=== PATIENT | male | born 1995 | race Asian ===

== ENCOUNTER 2020-09-30 08:51 | Inpatient (IN) | payer MEDICAID, SELFPAY ==
[2020-09-30] VITALS (8 sets, daily range): BP systolic 89–122
[~2020-09-30] VITALS: Ht 165.1 cm; Wt 122.5 kg
--- NOTE | 2020-09-30 09:10 | NUR ---
Pt bib EMS from intermediate with c/o rectal bleeding and pain for unknown amount of time. H/O developmental delays, states the people at the intermediate gave him "a poop pill" and since then he had diarrhea and pain, and noticed blood in stool. V/S stable, excoriation and blood noted on buttocks and in diaper. No acute distress noted.
--- NOTE | 2020-09-30 09:10 | NUR ---
Placed in room 5 . Placed on panel monitor, blood pressure machine and pulse oximeter. To gown for exam. Side rails up.
--- NOTE | 2020-09-30 09:13 | NUR ---
ER Dr. Glasgow at bedside examining patient.
[2020-09-30] MEDS ORDERED: HYDROcodone/ACETAMIN 5-325 MG TAB (NORCO/ VICODIN) PO ONE (09:15)
[2020-09-30 10:19] LABS: BASOPHILS # (AUTO) 0.1 K/uL (0.0-0.2); BASOPHILS % (AUTO) 0.5 % (0.0-2.0); EOSINOPHILS # (AUTO) 0.1 K/uL (0.0-0.4); EOSINOPHILS % (AUTO) 0.7 % (0.0-4.0); HEMATOCRIT 33.9 % (36-54); HEMOGLOBIN 10.7 g/dL (14.0-18.0); LYMPHOCYTES # (AUTO) 0.7 K/uL (1.0-5.5); LYMPHOCYTES % (AUTO) 6.4 % (20.5-51.5); MEAN CORPUSCULAR HEMOGLOBIN 28 pg (27-31); MEAN CORPUSCULAR HGB CONC 32 % (32-36); MEAN CORPUSCULAR VOLUME 90 fL (79.0-98.0); MONOCYTES # (AUTO) 0.9 K/uL (0.0-1.0); MONOCYTES % (AUTO) 7.3 % (1.7-9.3); NEUTROPHILS % (AUTO) 85.1 % (40.0-70.0); PLATELET COUNT (AUTO) 297 K/uL (130-430); RED BLOOD CELL COUNT(AUTO) 3.77 MIL/uL (4.2-6.2); RED CELL DISTRIBUTION WIDTH 15.2 % (9.0-15.0); WHITE BLOOD COUNT (AUTO) 11.7 K/uL (4.8-10.8)
[2020-09-30 10:41] LABS: CALCIUM 9.1 mg/dL (8.4-11.0)
[2020-09-30 10:44] LABS: POTASSIUM 7.9 mmol/L (3.5-5.1)
[2020-09-30 10:50] LABS: ALBUMIN 3.2 g/dL (3.4-4.8); TOTAL BILIRUBIN 0.5 mg/dL (0.0-1.0)
--- NOTE | 2020-09-30 10:50 | NUR ---
PER DR. MARSHALL, PT IS NOT STABLE FOR TRANSFER AND TO CALL FOR ADMISSION. DR. MICHELLE [phone]
[2020-09-30] MEDS ORDERED: INSULIN REGULAR, HUMAN 10 UNITS/0.1 ML INJ IVP ONE (11:00)
[2020-09-30] MEDS ORDERED: NACL 0.9% 2,000 ML IV ONE (11:00)
[2020-09-30] MEDS ORDERED: SODIUM BICARBONATE 0.5 MEQ/ML VIAL INJ ONE (11:00)
--- NOTE | 2020-09-30 11:00 | NUR ---
Patient will be admitted to care of Dr. Valerio. Admitted to telemetry unit. Waiting for room assignment. Belongings list completed. Complete and up to date summary report printed. SBAR report to be given at bedside with opportunity for questions.
[2020-09-30] MEDS ORDERED: LIP40 PO (11:09)
[2020-09-30] MEDS ORDERED: BUME2TAB7 PO (11:09)
[2020-09-30] MEDS ORDERED: ASPI-1077 PO (11:09)
[2020-09-30] MEDS ORDERED: METF1000 PO (11:09)
[2020-09-30] MEDS ORDERED: INSU100I26 SQ (11:09)
[2020-09-30] MEDS ORDERED: INSU1CAR SQ (11:09)
[2020-09-30] MEDS ORDERED: NEU300 PO (11:09)
[2020-09-30] MEDS ORDERED: METO-540 PO (11:09)
--- NOTE | 2020-09-30 11:09 | NUR ---
Medication reconciliation completed with information provided by [facility].
--- NOTE | 2020-09-30 11:14 | NUR ---
med rec and pt belonging form done
[2020-09-30] MEDS ORDERED: SODIUM BICARBONATE 8.4% JECT 50 MEQ/50 ML SYRINGE IVP ONE (11:15)
--- NOTE | 2020-09-30 11:15 | NUR ---
pt verbally declined, he does not wish us to notify family of admission to hospital
[2020-09-30] MEDS: NACL 0.9% 1,000 ML IV SCH ×2 (11:22→23:26)
--- NOTE | 2020-09-30 11:31 | NUR ---
DR. RAPHAEL, ALLIED DOC, CALLED BACK TO SPEAK TO DR. MARSHALL REGARDING PT STATUS.
--- NOTE | 2020-09-30 11:42 | NUR ---
Patient will be admitted to care of Dr. Valerio. Admitted to tele unit. Will go to room 113B. Belongings list completed. Complete and up to date summary report printed. SBAR report to be given at bedside with opportunity for questions.
[2020-09-30] MEDS ORDERED: CALCIUM GLUCONATE 1 GM/10 ML VIAL IVP ONE (11:45)
--- NOTE | 2020-09-30 12:09 | NUR ---
CONSULTATION PAGED/CALLED Reason for Consultation: RECTAL BLEED Person Who was Notified: GIO Consulting Physician: ORI CA Kitchenwhere Maker Specialty: GI Ordering Physician: Jessica MICHELLE
--- NOTE | 2020-09-30 12:14 | NUR ---
CONSULTATION PAGED/CALLED Reason for Consultation: RENAL FAILURE Person Who was Notified: DR HARE Consulting Physician: ANANYA Plant Safety Leader Specialty: NEPHRO Ordering Physician: MIGUEL ANGEL
--- NOTE | 2020-09-30 16:00 | NUR ---
DR MICHELLE CALLED REGARDING LABS RESULTS AND SAID WILL COME TO SEE THE PATIENT.
[2020-09-30] MEDS ORDERED: DEXTROSE 50% JECT 50 ML DISP.SYRIN IVP PRN (17:00)
[2020-09-30] MEDS ORDERED: D5W 1,000 ML IV PRN (17:00)
[2020-09-30] MEDS ORDERED: ONDANSETRON HCL 4 MG/2 ML VIAL IVP PRN (17:00)
[2020-09-30] MEDS ORDERED: MORPHINE 4 MG INJ. 4 MG/ML VIAL IVP PRN (17:00)
[2020-09-30] MEDS ORDERED: NALOXONE HCL 0.4 MG/ML AMP (NARCAN) IVP PRN (17:00)
[2020-09-30] MEDS ORDERED: SODIUM POLYSTYRENE SULFONATE 15 GM/60 ML UDBTL RC ONE (17:00)
[2020-09-30] MEDS ORDERED: cefTRIAXone 1 GM in D5W 50 ML IV SCH (17:00)
[2020-09-30] MEDS ORDERED: LORazepam 2 MG/ML VIAL IVP PRN (17:00)
[2020-09-30] MEDS ORDERED: GLUCOSE (DEXTROSE) ORAL GEL -Adults PO PRN (17:00)
[2020-09-30] MEDS ORDERED: MORPHINE 2 MG/ML INJ. SYRINGE IVP PRN (17:00)
--- NOTE | 2020-09-30 17:05 | NUR ---
CONSULTATION PAGED/CALLED Reason for Consultation: LEUKOCYTOSIS Person Who was Notified: GORAN Consulting Physician: KAYLYN Fisher Specialty: Ordering Physician: MIGUEL ANGEL
--- NOTE | 2020-09-30 17:26 | NUR ---
DR MICHELLE CAME AND DR HARE CAME TO SEE AND EVALUATE THE PATIENT.
--- NOTE | 2020-09-30 17:39 | NUR ---
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
[2020-09-30] MEDS: INSULIN REGULAR, HUMAN 100 UNITS/ML, 10 ML VIAL SUBCUT SCH (17:44)
[2020-09-30] MEDS: INSULIN REGULAR, HUMAN 100 UNITS/ML, 10 ML VIAL (humuLIN R) SUBCUT PRN (17:50)
--- NOTE | 2020-09-30 17:57 | NUR ---
AWAITING FOR ROCEPHIN IV. AND CALL DR MIGUEL ANGEL CARR FOR THE KAYEXELATE. PO.
--- NOTE | 2020-09-30 18:30 | NUR ---
Patient brought by nicanor from CT. VSS. Will endorse orders to oncoming RN.
--- NOTE | 2020-09-30 18:50 | NUR ---
SBAR REPORT GIVEN TO SUSY IN ICU AFTER CT SCAN OF ABDOMEN AND ULTRASOUND OF THE ABDOMEN.
--- NOTE | 2020-09-30 19:10 | NUR ---
OPENING NOTE: RECEIVED REPORT FROM RN USING SBAR REPORTING. ALL CARE ASSUMED.
--- NOTE | 2020-09-30 20:24 | NUR ---
DR. Jessica MICHELLE MD PAGED AT THIS TIME FOR ORDERS. SPOKE WITH BRICE AT THE EXCHANGE. WILL AWAIT MD CALL BACK.
[2020-09-30] MEDS ORDERED: INSULIN REGULAR, HUMAN 100 UNITS/ML, 10 ML VIAL SUBCUT ONE ×2 (20:30→23:00)
[2020-09-30] MEDS ORDERED: SODIUM POLYSTYRENE SULFONATE 15 GM/60 ML UDBTL PO ONE (20:30)
[2020-09-30] MEDS ORDERED: NOREPINEPHRINE BITARTRATE 4 MG in NS 246 ML IV PRN (20:30)
[2020-09-30] MEDS ORDERED: NOREPINEPHRINE 4 MG/4 ML VIAL IV ONE (20:37)
[2020-09-30] MEDS: GABAPENTIN 300 MG CAPSULE PO SCH (21:00)
[2020-09-30] MEDS: METOPROLOL SUCCINATE 25 MG TAB.SR.24H (TOPROL XL) PO SCH (21:00)
--- NOTE | 2020-09-30 22:30 | NUR ---
DR MICHELLE: UPDATED DR MICHELLE ON PTS STATUS. NEW ORDERS ACKNOWLEDGED AND CARRIED OUT. WILL CONTINUE TO MONITOR.
[2020-09-30 22:31] LABS: ALBUMIN 2.9 g/dL (3.4-4.8); CALCIUM 8.6 mg/dL (8.4-11.0); CREATININE 5.15 mg/dL (0.55-1.30); TOTAL BILIRUBIN 0.2 mg/dL (0.0-1.0)
[2020-09-30 22:41] LABS: POTASSIUM 6.4 mmol/L (3.5-5.1)
--- NOTE | 2020-09-30 23:00 | NUR ---
GREENE CATHETER: GREENE CATHETER INSERTED PER DR ORDERS. PT RELUCTANT BUT TOLERATED WELL. CLEAR URINE NOTED, DRAINING BY GRAVITY TO GREENE BAG.
[2020-09-30] MEDS: INSULIN GLARGINE 100 UNITS/ML 10 ML VIAL SUBCUT SCH (23:23)
[2020-10-01] VITALS (23 sets, daily range): BP systolic 90–135
[2020-10-01] MEDS: INSULIN REGULAR, HUMAN 100 UNITS/ML, 10 ML VIAL (humuLIN R) SUBCUT PRN ×4 (03:20→17:36)
[2020-10-01 06:11] LABS: ALBUMIN 2.7 g/dL (3.4-4.8); CALCIUM 8.5 mg/dL (8.4-11.0); CREATININE 4.5 mg/dL (0.55-1.30); HEMATOCRIT 30.3 % (36-54); HEMOGLOBIN 10.3 g/dL (14.0-18.0); MEAN CORPUSCULAR HEMOGLOBIN 30 pg (27-31); MEAN CORPUSCULAR HGB CONC 34 % (32-36); PHOSPHORUS 6.9 mg/dL (2.7-4.5); PLATELET COUNT (AUTO) 302 K/uL (130-430); POTASSIUM 5.2 mmol/L (3.5-5.1); RED BLOOD CELL COUNT(AUTO) 3.47 MIL/uL (4.2-6.2); RED CELL DISTRIBUTION WIDTH 14.9 % (9.0-15.0); TOTAL BILIRUBIN 0.2 mg/dL (0.0-1.0); WHITE BLOOD COUNT (AUTO) 10.3 K/uL (4.8-10.8)
[2020-10-01] MEDS: INSULIN REGULAR, HUMAN 100 UNITS/ML, 10 ML VIAL SUBCUT SCH ×3 (06:32→17:36)
[2020-10-01 06:46] LABS: MEAN CORPUSCULAR VOLUME 88 fL (79.0-98.0)
[2020-10-01 06:48] LABS: BAND % (MANUAL) 2 % (0-6); BASOPHILS % (MANUAL) 0 % (0-2); EOSINOPHILS % (MANUAL) 3 % (0-7); LYMPHOCYTES % (MANUAL) 10 % (20-46); MONOCYTES % (MANUAL) 6 % (0-11)
--- NOTE | 2020-10-01 07:07 | NUR ---
Nutrition Update Cornell Scale 12 noted. Pt admitted for Diabetes, uncontrolled, Renal failure, Rectal bleed Diet: NPO BMI: 44.9 kg/m2 RD to follow per nutrition care standards.
--- NOTE | 2020-10-01 07:28 | NUR ---
CLOSING NOTE: REPORT GIVEN TO RN USING SBAR REPORTING.
--- NOTE | 2020-10-01 07:30 | NUR ---
[facility] FOLLOW UP FOLLOWED UP WITH [facility] REGARDING 1900 PT PICKUP TIME. PER [facility]ARE PICKUP WILL BE AT 2100. WILL CONTINUE TO MONITOR PT. Addendum: 10/01/20 at 2021 by Kenya Peters RN WRONG TIME
--- NOTE | 2020-10-01 07:30 | NUR ---
Opening Note Received bedside report from endorsing RN for continuation of care. Received patient awake and resting in bed, no signs or symptoms of acute distress noted. Bed locked in lowest position, bed alarm on, and call light within reach. Fall and safety precautions in place. All needs met.
[2020-10-01] MEDS ORDERED: SODIUM BICARBONATE 8.4% JECT 50 MEQ/50 ML SYRINGE IVP ONE (07:45)
--- NOTE | 2020-10-01 07:48 | NUR ---
Spoke with Dr. Hernandez regarding ABG values, new orders received.
[2020-10-01 08:15] LABS: FREE T4 (FREE THYROXINE) 1.4 ng/dL (0.6-1.6)
[2020-10-01 08:23] LABS: ACETONE, SERUM TRACE (NEGATIVE)
--- NOTE | 2020-10-01 08:41 | NUR ---
2D ECHO being done at bedside.
[2020-10-01] MEDS ORDERED: ATORVASTATIN 20 MG TABLET PO SCH (09:00)
[2020-10-01] MEDS: GABAPENTIN 300 MG CAPSULE PO SCH ×2 (09:00→20:08)
[2020-10-01] MEDS: METOPROLOL SUCCINATE 25 MG TAB.SR.24H (TOPROL XL) PO SCH ×2 (09:00→20:08)
--- NOTE | 2020-10-01 09:04 | NUR ---
Family Update Spoke with patient's father regarding patient status and plan of care. All questions answered and education provided.
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
[2020-10-01] MEDS: INSULIN GLARGINE 100 UNITS/ML 10 ML VIAL SUBCUT SCH ×2 (09:23→20:07)
[2020-10-01] MEDS: NACL 0.9% 1,000 ML IV SCH ×2 (09:24→20:52)
[2020-10-01 10:18] LABS: BILIRUBIN,URINE NEGATIVE (NEGATIVE); BLOOD, URINE 3+ (NEGATIVE); COLOR,URINE YELLOW (YELLOW); GLUCOSE,URINE 3+ (NEGATIVE); KETONES,URINE NEGATIVE (NEGATIVE); LEUKOCYTE ESTERASE ,URINE NEGATIVE (NEGATIVE); NITRITE, URINE NEGATIVE (NEGATIVE); PROTEIN URINE TRACE (NEGATIVE); UROBILINOGEN,URINE 0.2 (0.2-1.0)
[2020-10-01 10:19] LABS: CLARITY/URINE HAZY (CLEAR)
[2020-10-01 10:31] LABS: BACTERIA,URINE FEW /HPF (None Seen); WBC,URINE 0-3 /HPF (0-3)
[2020-10-01 10:32] LABS: MUCUS,URINE 2+ /LPF (None Seen)
--- NOTE | 2020-10-01 10:36 | NUR ---
Spoke with Dr. Hernandez regarding UA results, no new orders.
--- NOTE | 2020-10-01 10:37 | NUR ---
Spoke with Dr. Brooke on the phone, new orders received.
[2020-10-01] MEDS ORDERED: AZITHROMYCIN 500 MG in NS 250 ML IV SCH (11:00)
--- NOTE | 2020-10-01 13:34 | NUR ---
Received call from julien ( procurement services manager regional [place] ) phone #[phone]. updated patient current condition and poc. stated let her know if patient gonna transfer to contracted hospital.
--- NOTE | 2020-10-01 13:43 | NUR ---
Dr. Tyler Valerio in to see patient, new orders received.
--- NOTE | 2020-10-01 13:44 | NUR ---
Spoke w/ Ricardo at [facility]-patient to transfer to [facility] under the Care of Dr Malone. She will initiate MD to MD conversation for acceptance of patient.
[2020-10-01] MEDS ORDERED: metroNIDAZOLE 500 mg/NS 100 ML IV SCH (14:00)
--- NOTE | 2020-10-01 15:56 | NUR ---
Pt to transfer to [facility] room 305 at 7PM by call the car [phone] Number for report [phone] Malone
--- NOTE | 2020-10-01 17:51 | NUR ---
Pending Transfer - Called Report Endorsed report over the phone to Edwige AZUL at [facility] using SBAR approach for continuation of care.
--- NOTE | 2020-10-01 19:09 | NUR ---
Closing Note Endorsed bedside report to oncoming RN using SBAR approach for continuation of care.
--- NOTE | 2020-10-01 19:30 | NUR ---
PM ASSESSMENT REPORT RECEIVED FROM EVAN AZUL. PT RECEIVED IN BED WITH EYES CLOSED, EASILY AROUSABLE. VSS, NO S/S OF ACUTE DISTRESS NOTED. IV SITE PATENT AND INTACT INFUSING IVF PER ORDERS. FC IN PLACE DRAINING URINE TO GRAVITY. PT DENIES ANY PAIN OR DISCOMFORT AT THIS TIME. HOB ELEVATED, BED IN LOWEST POSITION, CALL LIGHT IN REACH. WILL CONTINUE TO MONITOR PT.
--- NOTE | 2020-10-01 19:30 | NUR ---
[facility] FOLLOW UP FOLLOWED UP WITH [facility] REGARDING 1900 PT PICKUP TIME. PER CARE PICKUP WILL BE AT 2100. WILL CONTINUE TO MONITOR PT.
--- NOTE | 2020-10-01 21:33 | NUR ---
AM [facility] AM [facility] AT BEDSIDE FOR PT PICKUP. PTS FATHER WING UPDATED ON PT CONDITION AND PT TRANSFER.
== END 2020-10-01 21:41 | disposition short-term general hospital (02) | DRG 720 ==
LOC: SED 08:51 → STU 11:00 → SIC 18:30
PROVIDERS: ADMIT Preventive Medicine Preventive Medicine/Occupational Environmental Medicine; ATTEND Preventive Medicine Preventive Medicine/Occupational Environmental Medicine
DX: A41.9 Sepsis, unspecified organism (principal); J96.01 Acute respiratory failure with hypoxia; E11.00 Type 2 diabetes mellitus with hyperosmolarity without nonketotic hyperglycemic-hyperosmolar coma (NKHHC); I13.0 Hypertensive heart and chronic kidney disease with heart failure and stage 1 through stage 4 chronic kidney disease, or unspecified chronic kidney disease; J18.9 Pneumonia, unspecified organism; N17.9 Acute kidney failure, unspecified; E11.22 Type 2 diabetes mellitus with diabetic chronic kidney disease; I50.9 Heart failure, unspecified; K92.1 Melena; E11.65 Type 2 diabetes mellitus with hyperglycemia; N18.9 Chronic kidney disease, unspecified; D64.9 Anemia, unspecified; D72.829 Elevated white blood cell count, unspecified; E66.01 Morbid (severe) obesity due to excess calories; E87.1 Hypo-osmolality and hyponatremia; E87.5 Hyperkalemia; E88.09 Other disorders of plasma-protein metabolism, not elsewhere classified; E78.5 Hyperlipidemia, unspecified; E86.0 Dehydration; G47.33 Obstructive sleep apnea (adult) (pediatric); K52.9 Noninfective gastroenteritis and colitis, unspecified; K59.00 Constipation, unspecified; R62.50 Unspecified lack of expected normal physiological development in childhood; Z20.822 Contact with and (suspected) exposure to COVID-19; Z79.899 Other long term (current) drug therapy; Z68.41 Body mass index [BMI] 40.0-44.9, adult
CPT/HCPCS: 36415; 36600; 71045; 76376; 76770; 80053; 81000; 82009; 82803-TC; 82962; 83735; 83880; 84100; 84439; 84443; 85007; 85025; 85027; 86886; 86900; 86901; 87040-TC; 87045-TC; 87046; 87081; 87086; 87230-TC; 87449; 93005; 93306; 96361; 96374; 96375; 99291; J0456; J0610; J0696; J1815; J2060; J3490; J7030; J7042; J7050; J7060